=== PATIENT | male | born 1995 | race Caucasian/White ===

== ENCOUNTER 2017-03-25 03:00 | Emergency (ER) | payer BC ==
[~2017-03-25] VITALS: Ht 180.3 cm; Wt 75.0 kg
[2017-03-25 03:02] VITALS: BP 135/84; PULSE 100; RESP 16; TEMP 98.7; O2SAT 99
[2017-03-25] MEDS ORDERED: IBUPROFEN 800 MG TAB PO ONE (03:30)
[2017-03-25] MEDS ORDERED: TETANUS/DIPHTHERIA TOXOID ADULT 0.5 ML VIAL IM ONE (03:30)
--- NOTE | 2017-03-25 03:30 | PD ---
HPI Chief Complaint: Injury Time Seen by Provider: 03:26 Travel History International Travel<30 days: No Contact w/Intl Traveler<30days: No Traveled to known affect area: No History of Present Illness HPI 21-year-old [id number] white male presents to emergency Department with complaints of left hand pain after injury at work this evening. He states that he had caught his hand between a table and a metal shelf. The patient is complaining of a abrasion and pain to the for hand. Pain is mild. No numbness or tingling. No other injury. PFSH Past Medical History Medical History: Denies Significant Hx Diminished Hearing: No Tetanus Vaccination: > 5 Years Influenza Vaccination: No Past Surgical History Genitourinary Surgery: Yes Social History Alcohol Use: Yes Tobacco Use: No Substance Use: No Allergies-Medications (Allergen,Severity, Reaction): Coded Allergies: Cephalosporins (Verified Allergy, Intermediate, Rash, 03/25/17) Reported Meds & Prescriptions Reported Meds & Active Scripts Active Ibuprofen 800 Mg Tab 800 Mg PO Q8H PRN Review of Systems Except as stated in HPI: all other systems reviewed are Neg Musculoskeletal: Positive: Edema, Pain, No: Myalgias, Arthralgias, Limited ROM , Weakness, Cramping Skin: No Rash, No Itching Neurologic: No: Weakness, Paresthesia Physical Exam Narrative GENERAL: This is a well-nourished, well-developed patient, in no apparent distress. SKIN: No rashes, ecchymoses or lesions. Warm and dry. HEAD: Atraumatic. Normocephalic. EYES: PERRL, EOMI, no discharge or injection. No scleral icterus. EARS: Clear NOSE: Nasal turbinates appear normal. THROAT: Mucosa pink and moist. Airway patent. NECK: Trachea midline. supple, moves head freely. LUNGS: Clear to auscultation. CV: Regular in rhythm. ABDOMEN: Soft nontender. EXT: No clubbing cyanosis or edema. Examination of the left hand reveals mild tenderness across the second and third metacarpal. There is a small area of edema and abrasion. There is no deep laceration. Patient is able to extend and flex his fingers freely. Intact median/ulnar/radial nerves. No pain in the wrist, anatomical snuffbox or elbow. Data Data Last Documented VS Vital Signs Date Time Temp Pulse Resp B/P Pulse Ox O2 Delivery O2 Flow Rate FiO2 03/25/17 03:15 20 03/25/17 03:02 98.7 100 135/84 99 Room Air Orders Hand, Complete (Tim1lve) (03/25/17 03:16) Ice/Cold Pack (03/25/17 03:16) Tetanus/Diphtheria Tox Adult (Tetanus/Di (03/25/17 03:30) Ibuprofen (Motrin) (03/25/17 03:30) MDM Medical Decision Making Medical Screen Exam Complete: Yes Emergency Medical Condition: Yes Medical Record Reviewed: Yes Interpretation(s) Left hand: Negative for acute fracture. Differential Diagnosis MDM: High Differential diagnoses: Fracture, sprain, strain, dislocation, contusion, neurovascular injury Narrative Course Patient tetanus status updated. X-ray of the left hand is negative for trauma. Patient given ice pack and Motrin 800 g by mouth. This is left hand contusion Diagnosis Primary Impression: Contusion of left hand Qualified Code: S60.222A - Contusion of left hand, initial encounter Patient Instructions: General Instructions Additional Instructions: Rest. Elevation. Daily wound care with soap, water, Neosporin. Motrin. Limited use of the left hand for the next few days. Return to the ER if any problems. Follow-up with a medical doctor in one week. Med/Other Pt SpecificInfo: Prescription(s) given Scripts Ibuprofen 800 Mg Cod861 Mg PO Q8H PRN (Pain/Inflammation) #30 TAB Prov:Chely Trinidad MD 03/25/17 Disposition: 01 DISCHARGE HOME Condition: Stable Hal Mckeon March 25, 2017 03:30
[2017-03-25] MEDS ORDERED: IBUP800T23 PO (03:31)
--- NOTE | 2017-03-25 03:43 | RADRPT ---
EXAM DATE/TIME: 03/25/2017 03:24 [facility] COMPARISON: No previous studies available for comparison. INDICATIONS : Left hand pain from crushing injury. MEDICAL HISTORY : None. SURGICAL HISTORY : None. ENCOUNTER: Initial ACUITY: 1 day PAIN SCORE: 6/10 LOCATION: Left hand FINDINGS: Three view examination of the left hand demonstrates no soft tissue swelling, dislocation, or fractur e. The carpal bones appear intact. The interphalangeal and metacarpophalangeal joints are intact. Bony mineralization is normal. CONCLUSION: Negative trauma study. Johan Montgomery MD on March 25, 2017 at 3:41 Board Certified Radiologist. This report was verified electronically.
== END 2017-03-25 04:32 | disposition home or self-care (01) ==
LOC: NEPD 03:00
DX: S60.222A Contusion of left hand, initial encounter (principal); W23.0XXA Caught, crushed, jammed, or pinched between moving objects, initial encounter
CPT/HCPCS: 73130; 90471; 90714